=== PATIENT | male | born 1990 | race Caucasian/White ===

== ENCOUNTER 2021-03-06 02:11 | Observation (INO) ==
--- NOTE | 2021-03-06 02:36 | DR.DING ---
HPI Time Seen Time Seen by Provider: 03/06/21 02:20 HPI Comment HPI Comment: [facility] after being found unresponsive. CPR performed on scene, Narcan given with return of circulation and recovery of mental status. ROS Review of Systems Unable to Obtain Due To: Altered mental status PE Vital signs Vitals: Temperature 97.5 F Pulse Rate 83 Respiratory Rate 14 Blood Pressure 126/67 O2 Sat by Pulse Oximetry 91 General Limitations: No Limitations and Altered Mental Status General Appearance: Appears Intoxicated and Lethargic Head Head Exam: Normal Inspection, Atraumatic and Normocephalic Eyes Eye exam: Normal Appearance Neck Neck Exam: Normal Inspection and Trachea Midline Chest Chest Inspection: Normal Inspection and Symmetric Chest Wall Rise Respiratory Respiratory Exam: Normal Lung Sounds Bilat Respiratory Exam: Bilateral: Clear to Auscultation Cardiovascular Cardiovascular Exam: Regular Rate, Normal Rhythm and Normal Heart Sounds Abdominal Exam Abdominal Exam: Normal Inspection, Normal Bowel Sounds and Soft COURSE Reevaluation 1st: Unchanged (patient remains somnolent. O2 sat decreases when patient asleep. ) Consultation Consultation Comments: Spoke with Dr. Irizarry who accepts patient for admision [facility]OR Labs Reviewed Laboratory Results Reviewed?: Yes Result Diagrams: 03/06/21 02:35 03/06/21 02:35 Laboratory: WBC 6.5 X10^3/uL (3.6-10.0) 03/06/21 02:35 RBC 4.55 X10^6/uL (4.7-6.0) L 03/06/21 02:35 Hgb 14.2 g/dL (13.5-18.0) 03/06/21 02:35 Hct 41.6 % (42.0-54.0) L 03/06/21 02:35 MCV 91.4 fL (80.0-100.0) 03/06/21 02:35 MCH 31.3 pg (27.0-34.0) 03/06/21 02:35 MCHC 34.3 g/dL (33.0-35.0) 03/06/21 02:35 RDW 13.9 % (11.6-16.5) 03/06/21 02:35 Plt Count 218 X10^3/uL (150.0-450.0) 03/06/21 02:35 MPV 8.3 fL (7.4-11.0) 03/06/21 02:35 Neut % (Auto) 49.6 % (42.0-75.0) 03/06/21 02:35 Lymph % (Auto) 31.3 % (21.0-51.0) 03/06/21 02:35 [place] % (Auto) 4.3 % (0.0-13.0) 03/06/21 02:35 Eos % (Auto) 14.1 % (0.9-2.9) H 03/06/21 02:35 Baso % (Auto) 0.7 % (0.2-1.0) 03/06/21 02:35 Neut # (Auto) 3.2 x10^3/uL (2.2-4.8) 03/06/21 02:35 Lymph # (Auto) 2.0 X10^3/uL (1.3-2.9) 03/06/21 02:35 [place] # (Auto) 0.3 x10^3/uL (0.3-0.8) 03/06/21 02:35 Eos # (Auto) 0.9 x10^3/uL (0.0-0.2) H 03/06/21 02:35 Baso # (Auto) 0.0 X10^3/uL (0.0-0.1) 03/06/21 02:35 Absolute Nucleated RBC 0.1 /100WBC 03/06/21 02:35 Sample Site Lr 03/06/21 02:43 ABG pH 7.370 (7.35-7.45) 03/06/21 02:43 ABG pCO2 41.0 mmHg (35.0-45.0) 03/06/21 02:43 ABG pO2 62.0 mmHg (80.0-100.0) L 03/06/21 02:43 ABG HCO3 23.7 mmol/L (22-26) 03/06/21 02:43 ABG O2 Saturation 91.0 % (90-100) 03/06/21 02:43 ABG Base Excess -1.5 mmol/L (-2.0-2.0) 03/06/21 02:43 Jermaine Test Pos 03/06/21 02:43 A-a Gradient 172.0 mmHg 03/06/21 02:43 FiO2 40.0 06/26/21 02:43 Blood Gas Comments Tammy well sw 03/06/21 02:43 Sodium 144 mmol/L (136-145) 03/06/21 02:35 Corrected Sodium 146 mmol/L (136-145) H 03/06/21 02:35 Potassium 3.3 mmol/L (3.5-5.1) L 03/06/21 02:35 Chloride 105 mmol/L (98-107) 03/06/21 02:35 Carbon Dioxide 26.9 mmol/L (21-32) 03/06/21 02:35 BUN 18 mg/dL (7-18) 03/06/21 02:35 Creatinine 1.34 mg/dL (0.70-1.30) H 03/06/21 02:35 Est GFR (MDRD) Af Amer > 60 (>60) 03/06/21 02:35 Est GFR (MDRD) Non-Af > 60 (>60) 03/06/21 02:35 Glucose 189 mg/dL (65-99) H 03/06/21 02:35 Calcium 8.3 mg/dL (8.5-10.1) L 03/06/21 02:35 Corrected Calcium TNP 03/06/21 02:35 Total Bilirubin 0.20 mg/dL (0.2-1.0) 03/06/21 02:35 AST 52 Units/L (15-37) H 03/06/21 02:35 ALT 70 Units/L (12-78) 03/06/21 02:35 Alkaline Phosphatase 112 Units/L (46-116) 03/06/21 02:35 Total Protein 8.2 g/dL (6.4-8.2) 03/06/21 02:35 Albumin 4.2 g/dL (3.4-5.0) 03/06/21 02:35 Globulin 4.0 g/dL (2.5-4.5) 03/06/21 02:35 Albumin/Globulin Ratio 1.1 Ratio (1.1-2.1) 03/06/21 02:35 Specimen Type Clean catch urine 03/06/21 02:24 Urine Color Yellow (YELLOW) 03/06/21 02:24 Urine Appearance Slightly hazy (CLEAR) 03/06/21 02:24 Urine pH 6.0 (5.0 - 8.0) 03/06/21 02:24 Ur Specific [place] 1.025 (1.000-1.030) 03/06/21 02:24 Urine Protein 3+ (NEGATIVE) 03/06/21 02:24 Urine Glucose (UA) 3+ (NEGATIVE) 03/06/21 02:24 Urine Ketones Negative (NEGATIVE) 03/06/21 02:24 Urine Occult Blood 1+ (NEGATIVE) 03/06/21 02:24 Urine Nitrite Negative (NEGATIVE) 03/06/21 02:24 Urine Bilirubin Negative (NEGATIVE) 03/06/21 02:24 Urine Urobilinogen Normal (NORMAL) 03/06/21 02:24 Ur Leukocyte Esterase Negative (NEGATIVE) 03/06/21 02:24 Urine RBC 10-20 /HPF (0-3) A 03/06/21 02:24 Urine WBC 0-2 /HPF (0-5) 03/06/21 02:24 Ur Squamous Epith Cells Negative /HPF (NEGATIVE) 03/06/21 02:24 Amorphous Sediment 2+ /HPF (NEGATIVE) 03/06/21 02:24 Urine Bacteria 1+ /HPF (NEGATIVE) 03/06/21 02:24 Granular Casts Few /LPF (NEGATIVE) 03/06/21 02:24 Ur Culture Indicated? No/not indicated 03/06/21 02:24 Salicylates 5.0 mg/dL (2.8-20) 03/06/21 02:35 Urine Opiates Screen Positive (NEG=<300) 03/06/21 02:24 Urine Methadone Screen Negative (NEG=<300) 03/06/21 02:24 Acetaminophen 0.0 ug/mL (10-30) L 03/06/21 02:35 Ur Barbiturates Screen Negative (NEG=<200) 03/06/21 02:24 Ur Phencyclidine Scrn Negative (NEG=<25) 03/06/21 02:24 Ur Amphetamines Screen Positive (NEG=<1000) A 03/06/21 02:24 U Benzodiazepines Scrn Negative (NEG=<200) 03/06/21 02:24 Urine Cocaine Screen Negative (NEG=<300) 03/06/21 02:24 U Marijuana (THC) Screen Negative (NEG=<50) 03/06/21 02:24 Ethyl Alcohol mg/dL < 3 mg/dL (0-19.9) 03/06/21 02:35 Opioid Opioid Risk Tool Total: 0 Total Score Risk Category: Low Risk Copyright: Juanjose BUTLER predicting aberrant behaviors Diagnosis Discharge Problem: Drug overdose
[2021-03-06 02:43] VITALS: BMI 21.0
[2021-03-06 02:44] LABS: ABG BASE EXCESS -1.5 mmol/L (-2.0-2.0); ABG HCO3 23.7 mmol/L (22-26)
[2021-03-06 02:45] LABS: ABG ALLEN TEST POS
[2021-03-06 02:50] LABS: BILIRUBIN,URINE NEGATIVE (NEGATIVE); BLOOD/HEMOGLOBIN,URINE 1+ (NEGATIVE); GLUCOSE, URINE 3+ (NEGATIVE); KETONES,URINE NEGATIVE (NEGATIVE); LEUKOCYTE ESTERASE ,URINE NEGATIVE (NEGATIVE); NITRITES,URINE NEGATIVE (NEGATIVE); PROTEIN,URINE 3+ (NEGATIVE); UROBILINOGEN,URINE NORMAL (NORMAL)
[2021-03-06 02:53] LABS: BASOPHILS % (AUTO) 0.7 % (0.2-1.0); EOSINOPHILS # (AUTO) 0.9 x10^3/uL (0.0-0.2); EOSINOPHILS % (AUTO) 14.1 % (0.9-2.9); HEMATOCRIT 41.6 % (42.0-54.0); HEMOGLOBIN 14.2 g/dL (13.5-18.0); LYMPHOCYTES % (AUTO) 31.3 % (21.0-51.0); MEAN CORPUSCULAR HEMOGLOBIN 31.3 pg (27.0-34.0); MEAN CORPUSCULAR HGB CONC 34.3 g/dL (33.0-35.0); MEAN CORPUSCULAR VOLUME 91.4 fL (80.0-100.0); MEAN PLATELET VOLUME 8.3 fL (7.4-11.0); MONOCYTES # (AUTO) 0.3 x10^3/uL (0.3-0.8); MONOCYTES % (AUTO) 4.3 % (0.0-13.0); NEUTROPHILS # (AUTO) 3.2 x10^3/uL (2.2-4.8); NEUTROPHILS % (AUTO) 49.6 % (42.0-75.0); PLATELET COUNT 218 X10^3/uL (150.0-450.0); RED BLOOD COUNT 4.55 X10^6/uL (4.7-6.0); RED CELL DISTRIBUTION WIDTH 13.9 % (11.6-16.5); WHITE BLOOD COUNT 6.5 X10^3/uL (3.6-10.0)
[2021-03-06] MEDS ORDERED: NS 1000 ML 1,000 ML IV ONE ×2 (03:00→05:49)
[2021-03-06 03:02] LABS: ALANINE AMINOTRANSFERASE 70 Units/L (12-78); ALBUMIN 4.2 g/dL (3.4-5.0); ALKALINE PHOSPHATASE 112 Units/L (46-116); ASPARTATE AMINO TRANSFERASE 52 Units/L (15-37); BLOOD UREA NITROGEN 18 mg/dL (7-18); CALCIUM 8.3 mg/dL (8.5-10.1); CARBON DIOXIDE 26.9 mmol/L (21-32); CHLORIDE 105 mmol/L (98-107); COR NA(FOR HYPERGLY) 146 mmol/L (136-145); CREATININE 1.34 mg/dL (0.70-1.30); SODIUM 144 mmol/L (136-145); TOTAL PROTEIN 8.2 g/dL (6.4-8.2); eGFR NON BLACK RACES > 60 (>60)
[2021-03-06 03:03] LABS: BLOOD ALCOHOL < 3 mg/dL (0-19.9)
[2021-03-06] MEDS ORDERED: NS 1000 ML 1,000 ML ONE ×2 (03:04→05:43)
[2021-03-06 03:05] LABS: APPEARANCE,URINE SLIGHTLY HAZY (CLEAR); COLOR,URINE YELLOW (YELLOW)
[2021-03-06 03:06] LABS: AMORPHOUS SEDIMENT,UR 2+ /HPF (NEGATIVE); BACTERIA,URINE 1+ /HPF (NEGATIVE); GRANULAR CASTS,URINE FEW /LPF (NEGATIVE); SQUAMOUS EPITHELIAL CELL,UR NEGATIVE /HPF (NEGATIVE)
[2021-03-06] MEDS: NS 1000 ML 1,000 ML IV SCH ×3 (10:58→19:00)
--- NOTE | 2021-03-06 16:26 | DR.H&P ---
H&P History & Physical for Day of: H&P Date: 03/06/21 Chief Complaint Chief Complaint: meth od Allergies Allergies Allergy/AdvReac Type Severity Reaction Status Date / Time No Known Drug Allergies Allergy Verified 03/06/21 02:41 History of Present Illness History of Present Illness: Found with a group of inmates in cardiac arrest; cpr initiated and he came into the ER hypoxic and somnolent and was admitted because he did not wake up appropriately; currently, he complains of cp with movement, cough, and deep breathing; he just woke up and has not eaten but denies abd pain, n/v/d and sob. Past Surgical History Surgical History: Unknown Social History Does patient currently use any type of tobacco product: No Have you used tobacco products in the last 12 months: No Type of Tobacco Use: None Does any household member use tobacco: No Alcohol Use: None Drug Use: Methamphetamine and Other Medications Home Medications: No Known Drug Allergies Allergy (Verified 03/06/21 02:41) Labs Result Diagrams: 03/06/21 02:35 03/06/21 02:35 Labs: Laboratory WBC 6.5 X10^3/uL (3.6-10.0) 03/06/21 02:35 RBC 4.55 X10^6/uL (4.7-6.0) L 03/06/21 02:35 Hgb 14.2 g/dL (13.5-18.0) 03/06/21 02:35 Hct 41.6 % (42.0-54.0) L 03/06/21 02:35 MCV 91.4 fL (80.0-100.0) 03/06/21 02:35 MCH 31.3 pg (27.0-34.0) 03/06/21 02:35 MCHC 34.3 g/dL (33.0-35.0) 03/06/21 02:35 RDW 13.9 % (11.6-16.5) 03/06/21 02:35 Plt Count 218 X10^3/uL (150.0-450.0) 03/06/21 02:35 MPV 8.3 fL (7.4-11.0) 03/06/21 02:35 Neut % (Auto) 49.6 % (42.0-75.0) 03/06/21 02:35 Lymph % (Auto) 31.3 % (21.0-51.0) 03/06/21 02:35 [place] % (Auto) 4.3 % (0.0-13.0) 03/06/21 02:35 Eos % (Auto) 14.1 % (0.9-2.9) H 03/06/21 02:35 Baso % (Auto) 0.7 % (0.2-1.0) 03/06/21 02:35 Neut # (Auto) 3.2 x10^3/uL (2.2-4.8) 03/06/21 02:35 Lymph # (Auto) 2.0 X10^3/uL (1.3-2.9) 03/06/21 02:35 [place] # (Auto) 0.3 x10^3/uL (0.3-0.8) 03/06/21 02:35 Eos # (Auto) 0.9 x10^3/uL (0.0-0.2) H 03/06/21 02:35 Baso # (Auto) 0.0 X10^3/uL (0.0-0.1) 03/06/21 02:35 Absolute Nucleated RBC 0.1 /100WBC 03/06/21 02:35 Sample Site Lr 03/06/21 02:43 ABG pH 7.370 (7.35-7.45) 03/06/21 02:43 ABG pCO2 41.0 mmHg (35.0-45.0) 03/06/21 02:43 ABG pO2 62.0 mmHg (80.0-100.0) L 03/06/21 02:43 ABG HCO3 23.7 mmol/L (22-26) 03/06/21 02:43 ABG O2 Saturation 91.0 % (90-100) 03/06/21 02:43 ABG Base Excess -1.5 mmol/L (-2.0-2.0) 03/06/21 02:43 Jermaine Test Pos 03/06/21 02:43 A-a Gradient 172.0 mmHg 03/06/21 02:43 FiO2 40.0 03/06/21 02:43 Blood Gas Comments Tammy well sw 03/06/21 02:43 Sodium 144 mmol/L (136-145) 03/06/21 02:35 Corrected Sodium 146 mmol/L (136-145) H 03/06/21 02:35 Potassium 3.3 mmol/L (3.5-5.1) L 03/06/21 02:35 Chloride 105 mmol/L (98-107) 03/06/21 02:35 Carbon Dioxide 26.9 mmol/L (21-32) 03/06/21 02:35 BUN 18 mg/dL (7-18) 03/06/21 02:35 Creatinine 1.34 mg/dL (0.70-1.30) H 03/06/21 02:35 Est GFR (MDRD) Af Amer > 60 (>60) 03/06/21 02:35 Est GFR (MDRD) Non-Af > 60 (>60) 03/06/21 02:35 Glucose 189 mg/dL (65-99) H 03/06/21 02:35 POC Glucose (mg/dL) 104 mg/dL (65-99) H 03/06/21 11:17 Calcium 8.3 mg/dL (8.5-10.1) L 03/06/21 02:35 Corrected Calcium TNP 03/06/21 02:35 Total Bilirubin 0.20 mg/dL (0.2-1.0) 03/06/21 02:35 AST 52 Units/L (15-37) H 03/06/21 02:35 ALT 70 Units/L (12-78) 03/06/21 02:35 Alkaline Phosphatase 112 Units/L (46-116) 03/06/21 02:35 Total Protein 8.2 g/dL (6.4-8.2) 03/06/21 02:35 Albumin 4.2 g/dL (3.4-5.0) 03/06/21 02:35 Globulin 4.0 g/dL (2.5-4.5) 03/06/21 02:35 Albumin/Globulin Ratio 1.1 Ratio (1.1-2.1) 03/06/21 02:35 Specimen Type Clean catch urine 03/06/21 02:24 Urine Color Yellow (YELLOW) 03/06/21 02:24 Urine Appearance Slightly hazy (CLEAR) 03/06/21 02:24 Urine pH 6.0 (5.0 - 8.0) 03/06/21 02:24 Ur Specific [place] 1.025 (1.000-1.030) 03/06/21 02:24 Urine Protein 3+ (NEGATIVE) 03/06/21 02:24 Urine Glucose (UA) 3+ (NEGATIVE) 03/06/21 02:24 Urine Ketones Negative (NEGATIVE) 03/06/21 02:24 Urine Occult Blood 1+ (NEGATIVE) 03/06/21 02:24 Urine Nitrite Negative (NEGATIVE) 03/06/21 02:24 Urine Bilirubin Negative (NEGATIVE) 03/06/21 02:24 Urine Urobilinogen Normal (NORMAL) 03/06/21 02:24 Ur Leukocyte Esterase Negative (NEGATIVE) 03/06/21 02:24 Urine RBC 10-20 /HPF (0-3) A 03/06/21 02:24 Urine WBC 0-2 /HPF (0-5) 03/06/21 02:24 Ur Squamous Epith Cells Negative /HPF (NEGATIVE) 03/06/21 02:24 Amorphous Sediment 2+ /HPF (NEGATIVE) 03/06/21 02:24 Urine Bacteria 1+ /HPF (NEGATIVE) 03/06/21 02:24 Granular Casts Few /LPF (NEGATIVE) 03/06/21 02:24 Ur Culture Indicated? No/not indicated 03/06/21 02:24 Salicylates 5.0 mg/dL (2.8-20) 03/06/21 02:35 Urine Opiates Screen Positive (NEG=<300) 03/06/21 02:24 Urine Methadone Screen Negative (NEG=<300) 03/06/21 02:24 Acetaminophen 0.0 ug/mL (10-30) L 03/06/21 02:35 Ur Barbiturates Screen Negative (NEG=<200) 03/06/21 02:24 Ur Phencyclidine Scrn Negative (NEG=<25) 03/06/21 02:24 Ur Amphetamines Screen Positive (NEG=<1000) A 03/06/21 02:24 U Benzodiazepines Scrn Negative (NEG=<200) 03/06/21 02:24 Urine Cocaine Screen Negative (NEG=<300) 03/06/21 02:24 U Marijuana (THC) Screen Negative (NEG=<50) 03/06/21 02:24 Ethyl Alcohol mg/dL < 3 mg/dL (0-19.9) 03/06/21 02:35 SARS CoV-2 RNA Rapid KAYA Negative (NEGATIVE) 03/06/21 08:15 Review of Systems Constitutional: No Symptoms Reported Eyes: No Symptoms Reported ENT: No Symptoms Reported Respiratory: No Symptoms Reported Cardiovascular: Chest Pain and See HPI Gastrointestinal: No Symptoms Reported Genitourinary: No Symptoms Reported Musculoskeletal: See HPI Skin: No Symptoms Reported Neurological: No Symptoms Reported Physical Exam Vital Signs: Temperature 98.9 F Pulse Rate 52 Respiratory Rate 16 Blood Pressure 106/56 O2 Sat by Pulse Oximetry 100 Oriented: Normal Eyes: Normal Ear: Normal Respiratory: Clear Throughout Auscultation: Bowel Sounds: Normal Palpation: Normal Skin: Normal Musculoskeletal: Normal Affect: Quiet Speech Pattern: Clear Assessment/Plan (1) Cardiac arrest: Status: Acute Plan: Persistent cp from cpr; no further evaluation needed at this time. (2) Drug overdose: Status: Acute (3) Hypoxia: Status: Acute Plan: Resolved; he will be able to go back to facility. (4) ARF (acute renal failure): Status: Acute Plan: Remain hydrated; repeat cmp but he can go back to facility. (5) Hyperglycemia: Status: Acute (6) Methamphetamine intoxication: Status: Acute
--- NOTE | 2021-03-06 16:36 | W.DIS.FURT ---
Summary of Discharge Discharge Summary of Date Date of Exam: 03/06/21 Admission Diagnosis Patient Problems (Updated 03/06/21 @ 16:30 by Shira Irizarry) Drug overdose (Acute) T50.901A Hospital Course: [facility] after [facility] od; cpr began and transported to ER where he remained too somnolent and hypoxic to release; admitted overnight; he is back to baseline now. Vital Signs: Vital Signs (72 hours) 03/06/21 02:15 03/06/21 02:24 03/06/21 02:42 Temperature 95.4 F L Pulse Rate 91 H 67 90 Respiratory Rate 66 H 38 H 30 H Blood Pressure 110/82 155/90 107/53 O2 Sat by Pulse Oximetry 93 L 100 93 L 03/06/21 02:49 03/06/21 02:54 03/06/21 03:00 Temperature Pulse Rate 98 H 98 H 91 H Respiratory Rate 99 H 98 H 82 H Blood Pressure 107/64 147/99 O2 Sat by Pulse Oximetry 94 L 94 L 93 L 03/06/21 03:12 03/06/21 03:15 03/06/21 03:30 Temperature 95.9 F L Pulse Rate 96 H 96 H 101 H Respiratory Rate 32 H 95 H 101 H Blood Pressure 103/62 103/62 109/67 O2 Sat by Pulse Oximetry 96 96 97 03/06/21 03:45 03/06/21 04:00 03/06/21 04:15 Temperature Pulse Rate 80 106 H 101 H Respiratory Rate 10 L 108 H 104 H Blood Pressure 114/68 116/66 112/64 O2 Sat by Pulse Oximetry 100 95 96 03/06/21 04:30 03/06/21 04:45 03/06/21 05:00 Temperature 96.9 F L Pulse Rate 83 103 H 92 H Respiratory Rate 17 100 H 16 Blood Pressure 111/61 104/56 108/55 O2 Sat by Pulse Oximetry 100 92 L 97 03/06/21 05:15 03/06/21 05:30 03/06/21 05:45 Temperature Pulse Rate 83 88 83 Respiratory Rate 11 L 15 9 L Blood Pressure 113/56 114/58 109/55 O2 Sat by Pulse Oximetry 98 03/06/21 06:00 03/06/21 06:15 03/06/21 06:30 Temperature 97.5 F L Pulse Rate 90 88 75 Respiratory Rate 16 14 13 Blood Pressure 108/59 109/58 103/56 O2 Sat by Pulse Oximetry 93 L 92 L 92 L 03/06/21 06:45 03/06/21 07:00 03/06/21 07:15 Temperature Pulse Rate 73 83 Respiratory Rate 14 14 Blood Pressure 103/59 128/69 126/67 O2 Sat by Pulse Oximetry 92 L 91 L 03/06/21 07:30 03/06/21 07:45 03/06/21 08:00 Temperature Pulse Rate 77 73 73 Respiratory Rate 13 12 13 Blood Pressure 107/62 108/59 107/65 O2 Sat by Pulse Oximetry 93 L 92 L 92 L 03/06/21 08:15 03/06/21 08:30 03/06/21 08:45 Temperature Pulse Rate 73 75 71 Respiratory Rate 13 14 13 Blood Pressure 105/63 112/67 108/65 O2 Sat by Pulse Oximetry 93 L 93 L 94 L 03/06/21 09:00 03/06/21 09:15 03/06/21 09:42 Temperature 97.8 F Pulse Rate 79 69 81 Respiratory Rate 13 12 10 L Blood Pressure 106/64 105/64 116/71 O2 Sat by Pulse Oximetry 95 94 L 97 03/06/21 09:51 03/06/21 10:00 03/06/21 10:15 Temperature Pulse Rate 94 H 70 60 Respiratory Rate 17 14 11 L Blood Pressure O2 Sat by Pulse Oximetry 100 94 L 98 03/06/21 10:30 03/06/21 10:45 03/06/21 10:57 Temperature Pulse Rate 58 L 59 L 58 L Respiratory Rate 11 L 11 L 11 L Blood Pressure 105/61 O2 Sat by Pulse Oximetry 100 100 100 03/06/21 11:00 03/06/21 11:15 03/06/21 11:30 Temperature Pulse Rate 60 59 L 56 L Respiratory Rate 12 12 11 L Blood Pressure 107/61 O2 Sat by Pulse Oximetry 100 100 100 03/06/21 11:45 03/06/21 12:00 03/06/21 12:15 Temperature Pulse Rate 67 64 60 Respiratory Rate 13 15 20 Blood Pressure 105/57 O2 Sat by Pulse Oximetry 100 100 100 03/06/21 12:30 03/06/21 12:45 03/06/21 13:00 Temperature 98.9 F Pulse Rate 58 L 58 L 56 L Respiratory Rate 16 22 22 Blood Pressure 87/61 O2 Sat by Pulse Oximetry 100 100 100 03/06/21 13:15 03/06/21 13:30 03/06/21 13:45 Temperature Pulse Rate 60 55 L 55 L Respiratory Rate 11 L 16 12 Blood Pressure O2 Sat by Pulse Oximetry 100 100 100 03/06/21 13:50 03/06/21 14:00 03/06/21 14:15 Temperature Pulse Rate 56 L 54 L 66 Respiratory Rate 11 L 16 25 H Blood Pressure 106/57 106/56 O2 Sat by Pulse Oximetry 100 100 100 03/06/21 14:30 03/06/21 14:45 Temperature Pulse Rate 52 L 52 L Respiratory Rate 15 16 Blood Pressure O2 Sat by Pulse Oximetry 100 100 Labs: Laboratory Last Values WBC 6.5 X10^3/uL (3.6-10.0) 03/06/21 02:35 RBC 4.55 X10^6/uL (4.7-6.0) L 03/06/21 02:35 Hgb 14.2 g/dL (13.5-18.0) 03/06/21 02:35 Hct 41.6 % (42.0-54.0) L 03/06/21 02:35 MCV 91.4 fL (80.0-100.0) 03/06/21 02:35 MCH 31.3 pg (27.0-34.0) 03/06/21 02:35 MCHC 34.3 g/dL (33.0-35.0) 03/06/21 02:35 RDW 13.9 % (11.6-16.5) 03/06/21 02:35 Plt Count 218 X10^3/uL (150.0-450.0) 03/06/21 02:35 MPV 8.3 fL (7.4-11.0) 03/06/21 02:35 Neut % (Auto) 49.6 % (42.0-75.0) 03/06/21 02:35 Lymph % (Auto) 31.3 % (21.0-51.0) 03/06/21 02:35 [place] % (Auto) 4.3 % (0.0-13.0) 03/06/21 02:35 Eos % (Auto) 14.1 % (0.9-2.9) H 03/06/21 02:35 Baso % (Auto) 0.7 % (0.2-1.0) 03/06/21 02:35 Neut # (Auto) 3.2 x10^3/uL (2.2-4.8) 03/06/21 02:35 Lymph # (Auto) 2.0 X10^3/uL (1.3-2.9) 03/06/21 02:35 [place] # (Auto) 0.3 x10^3/uL (0.3-0.8) 03/06/21 02:35 Eos # (Auto) 0.9 x10^3/uL (0.0-0.2) H 03/06/21 02:35 Baso # (Auto) 0.0 X10^3/uL (0.0-0.1) 03/06/21 02:35 Absolute Nucleated RBC 0.1 /100WBC 03/06/21 02:35 Sample Site Lr 03/06/21 02:43 ABG pH 7.370 (7.35-7.45) 03/06/21 02:43 ABG pCO2 41.0 mmHg (35.0-45.0) 03/06/21 02:43 ABG pO2 62.0 mmHg (80.0-100.0) L 03/06/21 02:43 ABG HCO3 23.7 mmol/L (22-26) 03/06/21 02:43 ABG O2 Saturation 91.0 % (90-100) 03/06/21 02:43 ABG Base Excess -1.5 mmol/L (-2.0-2.0) 03/06/21 02:43 Jermaine Test Pos 03/06/21 02:43 A-a Gradient 172.0 mmHg 03/06/21 02:43 FiO2 40.0 03/06/21 02:43 Blood Gas Comments [facility] well 03/06/21 02:43 Sodium 144 mmol/L (136-145) 03/06/21 02:35 Corrected Sodium 146 mmol/L (136-145) H 03/06/21 02:35 Potassium 3.3 mmol/L (3.5-5.1) L 03/06/21 02:35 Chloride 105 mmol/L (98-107) 03/06/21 02:35 Carbon Dioxide 26.9 mmol/L (21-32) 03/06/21 02:35 BUN 18 mg/dL (7-18) 03/06/21 02:35 Creatinine 1.34 mg/dL (0.70-1.30) H 03/06/21 02:35 Est GFR (MDRD) Af Amer > 60 (>60) 03/06/21 02:35 Est GFR (MDRD) Non-Af > 60 (>60) 03/06/21 02:35 Glucose 189 mg/dL (65-99) H 03/06/21 02:35 POC Glucose (mg/dL) 104 mg/dL (65-99) H 03/06/21 11:17 Calcium 8.3 mg/dL (8.5-10.1) L 03/06/21 02:35 Corrected Calcium TNP 03/06/21 02:35 Total Bilirubin 0.20 mg/dL (0.2-1.0) 03/06/21 02:35 AST 52 Units/L (15-37) H 03/06/21 02:35 ALT 70 Units/L (12-78) 03/06/21 02:35 Alkaline Phosphatase 112 Units/L (46-116) 03/06/21 02:35 Total Protein 8.2 g/dL (6.4-8.2) 03/06/21 02:35 Albumin 4.2 g/dL (3.4-5.0) 03/06/21 02:35 Globulin 4.0 g/dL (2.5-4.5) 03/06/21 02:35 Albumin/Globulin Ratio 1.1 Ratio (1.1-2.1) 03/06/21 02:35 Specimen Type Clean catch urine 03/06/21 02:24 Urine Color Yellow (YELLOW) 03/06/21 02:24 Urine Appearance Slightly hazy (CLEAR) 03/06/21 02:24 Urine pH 6.0 (5.0 - 8.0) 03/06/21 02:24 Ur Specific [place] 1.025 (1.000-1.030) 03/06/21 02:24 Urine Protein 3+ (NEGATIVE) 03/06/21 02:24 Urine Glucose (UA) 3+ (NEGATIVE) 03/06/21 02:24 Urine Ketones Negative (NEGATIVE) 03/06/21 02:24 Urine Occult Blood 1+ (NEGATIVE) 03/06/21 02:24 Urine Nitrite Negative (NEGATIVE) 03/06/21 02:24 Urine Bilirubin Negative (NEGATIVE) 03/06/21 02:24 Urine Urobilinogen Normal (NORMAL) 03/06/21 02:24 Ur Leukocyte Esterase Negative (NEGATIVE) 03/06/21 02:24 Urine RBC 10-20 /HPF (0-3) A 03/06/21 02:24 Urine WBC 0-2 /HPF (0-5) 03/06/21 02:24 Ur Squamous Epith Cells Negative /HPF (NEGATIVE) 03/06/21 02:24 Amorphous Sediment 2+ /HPF (NEGATIVE) 03/06/21 02:24 Urine Bacteria 1+ /HPF (NEGATIVE) 03/06/21 02:24 Granular Casts Few /LPF (NEGATIVE) 03/06/21 02:24 Ur Culture Indicated? No/not indicated 03/06/21 02:24 Salicylates 5.0 mg/dL (2.8-20) 03/06/21 02:35 Urine Opiates Screen Positive (NEG=<300) 03/06/21 02:24 Urine Methadone Screen Negative (NEG=<300) 03/06/21 02:24 Acetaminophen 0.0 ug/mL (10-30) L 03/06/21 02:35 Ur Barbiturates Screen Negative (NEG=<200) 03/06/21 02:24 Ur Phencyclidine Scrn Negative (NEG=<25) 03/06/21 02:24 Ur Amphetamines Screen Positive (NEG=<1000) A 03/06/21 02:24 U Benzodiazepines Scrn Negative (NEG=<200) 03/06/21 02:24 Urine Cocaine Screen Negative (NEG=<300) 03/06/21 02:24 U Marijuana (THC) Screen Negative (NEG=<50) 03/06/21 02:24 Ethyl Alcohol mg/dL < 3 mg/dL (0-19.9) 03/06/21 02:35 SARS CoV-2 RNA Rapid KAYA Negative (NEGATIVE) 03/06/21 08:15 Reason For Visit: DRUG OVERDOSE Discharge Diagnosis All Active Problems (Updated 03/06/21 @ 16:30 by Shira Irizarry) Methamphetamine intoxication (Acute) Hyperglycemia (Acute) ARF (acute renal failure) (Acute) Hypoxia (Acute) Cardiac arrest (Acute) Drug overdose (Acute) Plan of Treatment: Continue with present treatment and follow up plan. Pt is to keep follow up appointment as instructed and take medications as ordered. Discharge Medications Discharge Medications: No Known Drug Allergies Allergy (Verified 03/06/21 02:41) Discharge Plan Discharge Plan Hospital Course: Pt [facility] after meth od; cpr began and transported to ER where he remained too somnolent and hypoxic to release; admitted overnight; he is back to baseline now. Patient Disposition: D/C with law/court enforcement Condition: Stable Health Concerns: Post Hospitalization: new medications and changes needed to prevent readmission or further decline. Pt educated and given instructions on all concerns. Plan of Treatment: Continue with present treatment and follow up plan. Pt is to keep follow up appointment as instructed and take medications as ordered. Orders to Discharge Patient Discharge Orders: Discharge (Routine); Ordered 03/06/21 Ordered By: Shira Irizarry Follow ups/Referrals Follow ups/Referrals: [facility],None [Primary Care Provider] - 3 days Instructions Instructions: Drug Overdose
[2021-03-06 16:52] LABS: ALANINE AMINOTRANSFERASE 65 Units/L (12-78); ALBUMIN 3.3 g/dL (3.4-5.0); ALKALINE PHOSPHATASE 88 Units/L (46-116); ASPARTATE AMINO TRANSFERASE 39 Units/L (15-37); BLOOD UREA NITROGEN 11 mg/dL (7-18); CALCIUM 8.1 mg/dL (8.5-10.1); CARBON DIOXIDE 25.1 mmol/L (21-32); CHLORIDE 109 mmol/L (98-107); COR CA(FOR HYPOALB) 8.7 mg/dL (8.5-10.1); CREATININE 0.75 mg/dL (0.70-1.30); SODIUM 143 mmol/L (136-145); TOTAL PROTEIN 6.6 g/dL (6.4-8.2); eGFR NON BLACK RACES > 60 (>60)
[2021-03-06] MEDS ORDERED: TORADOL 15 MG VIAL IVP ONE (16:57)
[2021-03-06 20:20] VITALS: BP 98/64
== END 2021-03-06 20:10 ==
LOC: ER 02:11 → ICU 02:11 → OBS 10:09 → ICU 10:09
PROVIDERS: ADMIT Internal Medicine; ATTEND Internal Medicine